=== PATIENT | male | born 1930 | race Caucasian/White ===

== ENCOUNTER → 2017-02-20 | Outpatient (CLI) | payer MEDICARE, OTHER | END | disposition home or self-care (01) | LOC: GMA 17:22 | PROVIDERS: ATTEND Nurse Practitioner Family | DX: R19.7 Diarrhea, unspecified (principal) ==

== ENCOUNTER → 2017-04-13 | Outpatient (CLI) | payer MEDICARE, OTHER ==
--- NOTE | 2017-04-13 11:33 | MRI ---
Study: MRI of the brain. Indication: HEADACHE Technique: Multiplanar, multi sequence MRI of the brain obtained without intravenous contrast. Comparison: None. Findings: Multiple tiny subcentimeter foci of scattered restricted diffusion noted at the bilateral cerebellar hemispheres as well as scattered throughout the bilateral centrum semiovale and right funes radiata. These changes are favored to reflect acute ischemic injury. No MRI evidence of acute hemorrhage, mass, mass effect, midline shift, or extra-axial fluid collection. Ventricles are normal in configuration without hydrocephalus. Patchy elevated T2/FLAIR signal abnormality is seen within the periventricular and subcortical white matter. Although nonspecific, this finding is most consistent with chronic microvascular ischemic change. Global parenchymal volume loss noted as well. Midline structures are intact. Paranasal sinuses are adequately aerated. Mastoid air cells are adequately aerated. Osseous structures and soft tissues demonstrate normal signal characteristics. Impression: Multiple tiny foci of restricted diffusion within the bilateral cerebellar hemispheres as well as the bilateral centrum semiovale. These changes are favored to reflect tiny foci of acute infarction, however tiny metastatic lesions could give this appearance. A repeat MRI brain with IV contrast or CT head with and without IV contrast recommended to evaluate for possible enhancement at these sites. Senescent changes. Findings were discussed with Dr. Wright at 1125 hours on 04/13/2017. Electronically signed by: Lázaro Lemus MD 04/13/2017 11:32 AM CDT Workstation: [id number]
--- NOTE | 2017-04-16 10:24 | RAD ---
EXAM DESCRIPTION: Chest,2 Views CLINICAL HISTORY: 86 years,Male,SOB COMPARISON: March 13, 2016 FINDINGS: There are no consolidations. No effusions. No pneumothoraces. No nodules. Bony elements unremarkable for age. Mild interstitial changes throughout stable IMPRESSION: Probable mild fibrotic changes throughout stable no acute findings Electronically signed by: Blaine Ron MD 04/16/2017 10:24 AM CDT
== END | disposition home or self-care (01) ==
LOC: MRI 10:16
PROVIDERS: ATTEND Internal Medicine
DX: R51 Headache (principal); R06.02 Shortness of breath